=== PATIENT | female | born 1985 | race Caucasian/White ===

== ENCOUNTER 2018-06-14 22:43 | Emergency (ER) | payer MEDICAID ==
[~2018-06-14] VITALS: Ht 149.9 cm; Wt 92.1 kg
[2018-06-14 23:04] VITALS: Ht 149.9 cm; Wt 92.1 kg
[2018-06-15 00:54] LABS: BASOPHIL % 0.4 % (0-2); PLATELET COUNT 242 x10^3mcL (130-400)
[2018-06-15 02:05] VITALS: BP 101/71
== END 2018-06-15 02:11 | disposition home or self-care (01) ==
LOC: ED 22:43
PROVIDERS: Emergency Medicine
DX: O03.9 Complete or unspecified spontaneous abortion without complication (principal)
CPT/HCPCS: 36415

== ENCOUNTER 2019-09-01 21:24 | Emergency (ER) | payer MEDICAID ==
[~2019-09-01] VITALS: Ht 149.9 cm; Wt 100.7 kg
[2019-09-01 21:31] VITALS: Ht 149.9 cm; Wt 100.7 kg
[2019-09-02 00:26] VITALS: BP 145/88
== END 2019-09-02 00:26 | disposition home or self-care (01) ==
LOC: ED 21:24
DX: B02.9 Zoster without complications (principal)
CPT/HCPCS: Q0162